=== PATIENT | female | born 1990 | race Caucasian/White ===

== ENCOUNTER → 2016-12-07 | Outpatient (CLI) | payer BC ==
[~2016-12-07] MED LIST: B-12 250 MCG PO; PRENATAL PO; VITAMIN B6250 MG PO; ZANTAC 150MG T150 MG PO
== END ==
LOC: BHSO 09:52
DX: F33.1 Major depressive disorder, recurrent, moderate (principal)

== ENCOUNTER → 2016-12-17 | Outpatient (CLI) | payer BC | LOC: BHSO 08:53 | DX: F33.1 Major depressive disorder, recurrent, moderate (principal) ==

== ENCOUNTER → 2017-01-15 | Outpatient (CLI) | payer BC | LOC: BHSO 09:02 | DX: F33.1 Major depressive disorder, recurrent, moderate (principal) ==